=== PATIENT | male | born 1995 | race Caucasian/White ===

== ENCOUNTER 2024-03-02 16:21 | Emergency (ER) | payer SELFPAY ==
[~2024-03-02] VITALS: Ht 170.2 cm; Wt 77.1 kg
[2024-03-02 16:53] VITALS: TEMP 98.7; O2SAT 100
[2024-03-02 17:15] VITALS: BP 117/71; PULSE 92; RESP 16
[2024-03-02] MEDS: LIDOCAINE 5% PATCH TOP SCH (17:15)
[2024-03-02] MEDS: KETOROLAC 30MG/ML VIAL IM ONE (17:15)
[2024-03-02] MEDS ORDERED: LIDO700A30 TP (18:15)
[2024-03-02] MEDS ORDERED: IBUP-2029 MT (18:15)
== END 2024-03-02 20:59 | disposition home or self-care (01) ==
LOC: ER 16:21
DX: M54.50 Low back pain, unspecified (principal)
CPT/HCPCS: 99283; 72110; 96372; J1885